=== PATIENT | male | born 1950 | race Caucasian/White ===

== ENCOUNTER 2019-02-20 07:42 | Day surgery (SDC) | payer OTHER ==
[~2019-02-20] VITALS: Ht 175.3 cm; Wt 88.5 kg
[~2019-02-20 07:42] MED LIST: CEFAZOLIN SOD 2 GM in D5W 50 ML IV ONE
[2019-02-20] MEDS ORDERED: POLYMYXIN 500,000/BACIT.10,000 UNITS in NS IRR 1 L IR ONE (10:35)
[2019-02-20] MEDS ORDERED: KETOROLAC TROMETHAMINE 30 MG VIAL IVP ONE (10:53)
[2019-02-20] MEDS ORDERED: NS IRRIG SOLN 1000 ML IR ONE (10:53)
[2019-02-20] MEDS ORDERED: BUPIVACAINE /EPINEPHRINE/PF 0.25% 30 ML VIAL INJ ONE (10:53)
[2019-02-20] MEDS ORDERED: SEVOFLURANE 15 MIN GAS INH ONE (10:53)
[2019-02-20] MEDS ORDERED: ePHEDrine sulfate 50 MG/ML VIAL IM ONE (10:53)
[2019-02-20] MEDS ORDERED: PROPOFOL 200MG/ 20ML VIAL (DIPRIVAN) IV ONE (10:53)
[2019-02-20] MEDS ORDERED: ROCURONIUM BROMIDE 10 MG/ML (ZEMURON) IV ONE (10:53)
[2019-02-20] MEDS ORDERED: ONDANSETRON HCL 4 MG/2 ML VIAL IVP ONE (10:53)
[2019-02-20] MEDS ORDERED: DEXAMETHASONE SOD PHOSPHATE 4 MG/ML VIAL IVP ONE (10:53)
[2019-02-20] MEDS ORDERED: ONDANSETRON HCL 4 MG/2 ML VIAL IVP PRN (12:30)
[2019-02-20] MEDS: HYDROmorphone 1 MG INJ. 1 MG/ML AMPUL IVP PRN ×2 (15:00→15:16)
[2019-02-20] MEDS ORDERED: HYDROmorphone 1 MG INJ. 1 MG/ML AMPUL ONE (15:13)
[2019-02-20 16:05] VITALS: BP_SYST 123
== END 2019-02-20 18:00 | disposition home or self-care (01) ==
LOC: SDS 07:42 → SMU 07:42 → STU 07:44 → SDS 18:00
PROVIDERS: ATTEND Surgery
DX: K40.20 Bilateral inguinal hernia, without obstruction or gangrene, not specified as recurrent (principal); K43.2 Incisional hernia without obstruction or gangrene; K66.0 Peritoneal adhesions (postprocedural) (postinfection); K21.9 Gastro-esophageal reflux disease without esophagitis; I10 Essential (primary) hypertension; F17.210 Nicotine dependence, cigarettes, uncomplicated; Z79.899 Other long term (current) drug therapy; Z85.038 Personal history of other malignant neoplasm of large intestine; Z90.49 Acquired absence of other specified parts of digestive tract
CPT/HCPCS: 49650; 49654; C1727; C1781; J0690; J1170; J7060; J7120; S2900; J1100; J1885; J2405; J2704; J3490